=== PATIENT | male | born 1965 | race Two or more races ===

== ENCOUNTER 2021-02-20 08:35 | Outpatient (CLI) | payer OTHER | END 2021-02-20 08:42 | disposition home or self-care (01) | LOC: RAD 08:35 | PROVIDERS: ATTEND Internal Medicine | DX: I10 Essential (primary) hypertension (principal); M54.59 Other low back pain; Z01.810 Encounter for preprocedural cardiovascular examination; E03.8 Other specified hypothyroidism; E78.9 Disorder of lipoprotein metabolism, unspecified; E55.9 Vitamin D deficiency, unspecified; E11.51 Type 2 diabetes mellitus with diabetic peripheral angiopathy without gangrene; E11.9 Type 2 diabetes mellitus without complications; E66.8 Other obesity; G62.89 Other specified polyneuropathies; I25.10 Atherosclerotic heart disease of native coronary artery without angina pectoris; Z95.810 Presence of automatic (implantable) cardiac defibrillator ==

== ENCOUNTER 2021-08-31 14:00 | Outpatient (CLI) | payer OTHER ==
[~2021-08-31 14:00] MED LIST: CYCLOBENZAPRINE10 MG PO; KETO10TA2 PO
== END 2021-08-31 14:05 | disposition home or self-care (01) ==
LOC: RAD 14:00
PROVIDERS: ATTEND Orthopaedic Surgery Hand Surgery
DX: M19.241 Secondary osteoarthritis, right hand (principal); M19.242 Secondary osteoarthritis, left hand

== ENCOUNTER 2024-12-27 11:35 | Outpatient (CLI) | payer OTHER ==
[~2024-12-27 11:35] MED LIST changes: +DICLOFENAC POTA50 MG PO; +MEDROLPACK PO
== END 2024-12-27 11:39 | disposition home or self-care (01) ==
LOC: RAD 11:35
PROVIDERS: ATTEND Physical Medicine & Rehabilitation
DX: M54.2 Cervicalgia (principal)